=== PATIENT | male | born 1960 ===

== ENCOUNTER 2022-04-13 04:24 | Emergency (ER) | payer OTHER ==
[2022-04-13 05:23] LABS: CHLORIDE,CL 100 mmol/L (98-107); SODIUM,NA 136 mmol/L (136-145)
[2022-04-13 05:25] LABS: ESTIMATED GFR 101 mL/min (>=60)
== END 2022-04-13 06:25 | disposition home or self-care (01) ==
LOC: EDBD 04:24 → MERGE 04:24 → DL.ED 04:24
DX: S01.81XA Laceration without foreign body of other part of head, initial encounter (principal); W10.8XXA Fall (on) (from) other stairs and steps, initial encounter
CPT/HCPCS: 12011; 36415; 70450; 72125; 80053; 80307; 85025; 99283

== ENCOUNTER 2022-04-13 21:25 | Emergency (ER) | payer OTHER ==
[2022-04-13] MEDS: MVI, Adult with Vitamin K 10 ML, Folic Acid 1 MG, Thiamine 100 MG in Lactated Ringers 1... IV ONE ×4 (22:25)
== END 2022-04-14 00:36 ==
LOC: DL.ED 21:25
DX: R20.2 Paresthesia of skin (principal); Z20.822 Contact with and (suspected) exposure to COVID-19; W10.9XXA Fall (on) (from) unspecified stairs and steps, initial encounter
CPT/HCPCS: 72125; 72128; 72131; 96365; 99285; 99285-25; J3411; J3490; J7120; U0002

== ENCOUNTER 2023-10-15 05:19 | Day surgery (SDC) | payer MEDICAID ==
[~2023-10-15 05:19] MED LIST: Sodium Chloride 0.9% 10 ML Syringe FLUSH PRN; Sodium Chloride 0.9% 10 ML Syringe FLUSH SCH
[2023-10-15] MEDS ORDERED: Midazolam 1 MG/ML 2 ML SDV IV ONE (05:20)
[2023-10-15] MEDS ORDERED: fentaNYL 100 MCG/2 ML SDV IV ONE (05:20)
[2023-10-15] MEDS: Dextrose 5%-0.45% NaCl 1,000 ML IV SCH (05:57)
[2023-10-15] MEDS ORDERED: Midazolam 1 MG/ML 2 ML SDV ONE (06:13)
[2023-10-15] MEDS ORDERED: fentaNYL 100 MCG/2 ML SDV ONE (06:13)
[2023-10-15] MEDS: fentaNYL 100 MCG/2 ML SDV IV ONE ×2 (07:24)
[2023-10-15] MEDS: Midazolam 1 MG/ML 2 ML SDV IV ONE ×5 (07:25→07:34)
== END 2023-10-15 09:50 | disposition home or self-care (01) ==
LOC: DL.ENDO 05:19
PROVIDERS: ATTEND Internal Medicine Gastroenterology
DX: Z12.11 Encounter for screening for malignant neoplasm of colon (principal); D12.4 Benign neoplasm of descending colon; K63.5 Polyp of colon; K57.30 Diverticulosis of large intestine without perforation or abscess without bleeding; I10 Essential (primary) hypertension; E11.9 Type 2 diabetes mellitus without complications; E78.5 Hyperlipidemia, unspecified; E66.9 Obesity, unspecified
CPT/HCPCS: 45385; J2250; J3010; J7042